=== PATIENT | female | born 1975 | race African-American/Black ===

== ENCOUNTER 2016-05-06 17:04 | Day surgery (SDC) | payer OTHER ==
[2016-04-26 11:41] VITALS: BMI 35.8
[2016-05-06 08:52] LABS: BASOPHIL 0.7 % (0-2.0); EOSINOPHIL 2.4 % (0-4.5); MCH 27.5 pg (25.7-33.7); MCHC 32.8 g/dl (32.0-36.0); MEAN CELL VOLUME 84.1 fl (80-96); MEAN PLT VOLUME 6.8 fl (7.5-11.1); PLATELET COUNT 382 K/MM3 (134-434); RDW 16.2 % (11.6-15.6); WHITE BLOOD COUNT 8.3 K/mm3 (4.0-10.0)
[2016-05-06 09:14] LABS: ALBUMIN 3.7 g/dl (3.4-5.0); ALK PHOS 80 U/L (45-117); ANION GAP 7 (8-16); BILIRUBIN,TOTAL 0.5 mg/dL (0.2-1.0); CO2 26 mmol/L (21-32); CREATININE 0.9 mg/dL (0.55-1.02); GLUCOSE,RANDOM 104 mg/dL (74-106); SGOT/AST 24 U/L (15-37); SGPT/ALT 26 U/L (12-78); TOT PROT 7.2 g/dl (6.4-8.2)
[2016-05-06 09:16] LABS: INR 0.95 (0.82-1.09); PROTHROMBIN TIME (PATIENT) 10.4 SEC (9.98-11.88)
[2016-05-06] MEDS: SODIUM CHLORIDE 1,000 ML IV SCH (14:48)
[~2016-05-06 17:04] MED LIST: DEXAMETHASONE SOD PHOSPHATE 10 MG/1 ML VIAL ONE; DOCUSATE SODIUM 100 MG CAPSULE (FP) PO PRN; HYDROmorphone *PCA* 10MG/50ML DISP.SYRIN PCA ONE; HYDROmorphone *PCA* 10MG/50ML DISP.SYRIN PCA SCH; ONDANSETRON 4 MG/2 ML VIAL IVPUSH PRN
--- NOTE | 2016-05-06 17:05 | HP ---
CHIEF COMPLAINT: S/P uterine artery ablation PCP: HISTORY OF PRESENT ILLNESS: 41 year old with history of vaginal bleeding secondary to uterine fibroids now seen status post elective uterine artery ablation. Pain is controlled on CLIENT SERVER PROGRAMMER pump Recent Travel: PAST MEDICAL HISTORY: Uterine Fibroids PAST SURGICAL HISTORY: Ankle replacement Social History: Smokinp /y Alcohol:No Drugs: NO Family History: No history of cancer Allergies No Known Allergies Allergy (Verified 05/06/16 09:50) HOME MEDICATIONS: Home Medications Medication Instructions Recorded NK [No Known Home Medication] 04/26/16 REVIEW OF SYSTEMS CONSTITUTIONAL: Absent: fever, chills, diaphoresis, generalized weakness, malaise, loss of appetite, weight change HEENT: Absent: rhinorrhea, nasal congestion, throat pain, throat swelling, difficulty swallowing, mouth swelling, ear pain, eye pain, visual changes CARDIOVASCULAR: Absent: chest pain, syncope, palpitations, irregular heart rate, lightheadedness , peripheral edema RESPIRATORY: Absent: cough, shortness of breath, dyspnea with exertion, orthopnea, wheezing, stridor, hemoptysis GASTROINTESTINAL: Absent: abdominal pain, abdominal distension, nausea, vomiting, diarrhea, constipation, melena, hematochezia GENITOURINARY: Absent: dysuria, frequency, urgency, hesitancy, hematuria, flank pain, genital pain MUSCULOSKELETAL: Absent: myalgia, arthralgia, joint swelling, back pain, neck pain SKIN: Absent: rash, itching, pallor HEMATOLOGIC/IMMUNOLOGIC: Absent: easy bleeding, easy bruising, lymphadenopathy, frequent infections ENDOCRINE: Absent: unexplained weight gain, unexplained weight loss, heat intolerance, cold intolerance NEUROLOGIC: Absent: headache, focal weakness or paresthesias, dizziness, unsteady gait, seizure, mental status changes, bladder or bowel incontinence PSYCHIATRIC: Absent: anxiety, depression, suicidal or homicidal ideation, hallucinations. PHYSICAL EXAMINATION Vital Signs - 24 hr 05/06/16 05/06/16 05/06/16 09:48 09:52 11:22 Temperature 97.9 F Pulse Rate 90 73 Pulse Rate [ Left Lower Arm] Respiratory 18 16 Rate Respiratory Rate [Left Lower Arm] Blood Pressure 159/72 156/97 Blood Pressure [Left Lower Arm ] O2 Sat by Pulse 100 100 Oximetry (%) O2 Sat by Pulse Oximetry (%) [ Left Lower Arm] 05/06/16 05/06/16 05/06/16 11:29 11:39 11:49 Temperature Pulse Rate Pulse Rate [ 78 72 75 Left Lower Arm] Respiratory Rate Respiratory 16 16 16 Rate [Left Lower Arm] Blood Pressure Blood Pressure 156/97 146/86 154/94 [Left Lower Arm ] O2 Sat by Pulse Oximetry (%) O2 Sat by Pulse 100 100 100 Oximetry (%) [ Left Lower Arm] 05/06/16 05/06/16 05/06/16 11:59 12:08 12:18 Temperature Pulse Rate Pulse Rate [ 78 78 68 Left Lower Arm] Respiratory Rate Respiratory 16 16 19 Rate [Left Lower Arm] Blood Pressure Blood Pressure 154/94 162/87 171/109 [Left Lower Arm ] O2 Sat by Pulse Oximetry (%) O2 Sat by Pulse 100 100 100 Oximetry (%) [ Left Lower Arm] 05/06/16 05/06/16 05/06/16 12:28 12:38 12:48 Temperature Pulse Rate Pulse Rate [ 68 71 78 Left Lower Arm] Respiratory Rate Respiratory 19 17 16 Rate [Left Lower Arm] Blood Pressure Blood Pressure 171/109 176/116 172/101 [Left Lower Arm ] O2 Sat by Pulse Oximetry (%) O2 Sat by Pulse 100 100 100 Oximetry (%) [ Left Lower Arm] 05/06/16 05/06/16 12:58 13:01 Temperature Pulse Rate 69 Pulse Rate [ 71 Left Lower Arm] Respiratory 15 Rate Respiratory 15 Rate [Left Lower Arm] Blood Pressure 145/92 Blood Pressure 162/96 [Left Lower Arm ] O2 Sat by Pulse 100 Oximetry (%) O2 Sat by Pulse 100 Oximetry (%) [ Left Lower Arm] GENERAL: Awake, alert, and fully oriented, in no acute distress. HEAD: Normal with no signs of trauma. EYES: Pupils equal, round and reactive to light, extraocular movements intact, sclera anicteric, conjunctiva clear. No lid lag. EARS, NOSE, THROAT: Ears normal, nares patent, oropharynx clear without exudates. Moist mucous membranes. NECK: Normal range of motion, supple without lymphadenopathy, JVD, or masses. LUNGS: Breath sounds equal, clear to auscultation bilaterally. No wheezes, and no crackles. No accessory muscle use. HEART: Regular rate and rhythm, normal S1 and S2 without murmur, rub or gallop. ABDOMEN: Soft, mild diffuse tenderness postop MUSCULOSKELETAL: Normal range of motion at all joints. No bony deformities or tenderness. No CVA tenderness. UPPER EXTREMITIES: 2+ pulses, warm, well-perfused. No cyanosis. No clubbing. No peripheral edema. LOWER EXTREMITIES: 2+ pulses, warm, well-perfused. No calf tenderness. No peripheral edema. NEUROLOGICAL: Cranial nerves II-XII intact. Normal speech. Normal gait. PSYCHIATRIC: Cooperative. Good eye contact. Appropriate mood and affect. SKIN: Warm, dry, normal turgor, no rashes or lesions noted, normal capillary refill. Laboratory Results - last 24 hr 05/06/16 05/06/16 05/06/16 08:42 08:42 08:42 WBC 8.3 RBC 4.14 Hgb 11.4 Hct 34.8 MCV 84.1 MCHC 32.8 RDW 16.2 H Plt Count 382 MPV 6.8 L Neutrophils % 68.0 Lymphocytes % 18.2 Monocytes % 10.7 H Eosinophils % 2.4 Basophils % 0.7 INR 0.95 Sodium Potassium Chloride Carbon Dioxide Anion Gap BUN Creatinine Creat Clearance w eGFR POC Glucometer Random Glucose Calcium Total Bilirubin AST ALT Alkaline Phosphatase Total Protein Albumin Urine HCG, Qual Negative 05/06/16 05/06/16 08:42 13:48 WBC RBC Hgb Hct MCV MCHC RDW Plt Count MPV Neutrophils % Lymphocytes % Monocytes % Eosinophils % Basophils % INR Sodium 139 Potassium 3.6 Chloride 106 Carbon Dioxide 26 Anion Gap 7 L BUN 9 Creatinine 0.9 Creat Clearance w eGFR > 60 POC Glucometer 174 Random Glucose 104 Calcium 9.0 Total Bilirubin 0.5 AST 24 ALT 26 Alkaline Phosphatase 80 Total Protein 7.2 Albumin 3.7 Urine HCG, Qual ASSESSMENT/PLAN: 41 year old with history of vaginal bleeding secondary to uterine fibroids now seen status post elective uterine artery ablation POD 1 - pain control with CLIENT SERVER PROGRAMMER pump - start diet - d/c rodgers in am - ambulate - d/c tomorrow if HB is stable and pain s controlled - DVT ppx with scd Visit type - Emergency Visit Emergency Visit: No - New Patient This patient is new to me today: Yes Date on this admission: 05/06/16 - Critical Care Critical Care patient: No
[2016-05-07 08:09] LABS: MCH 27.5 pg (25.7-33.7); MCHC 32.7 g/dl (32.0-36.0); MEAN CELL VOLUME 84.1 fl (80-96); MEAN PLT VOLUME 7.5 fl (7.5-11.1); PLATELET COUNT 356 K/MM3 (134-434); RDW 16.1 % (11.6-15.6); WHITE BLOOD COUNT 17.5 K/mm3 (4.0-10.0)
[2016-05-07] MEDS: oxyCODONE HCL 5 MG TABLET PO PRN ×2 (08:09→23:14)
[2016-05-07] MEDS ORDERED: ACETAMINOPHEN 325 MG TABLET (FP) PO PRN (09:58)
[2016-05-07] MEDS ORDERED: ONDANSETRON 4 MG TABLET PO PRN (13:09)
--- NOTE | 2016-05-07 13:58 | PN ---
Teaching Attending Note Name of Resident: Domingo Collins ATTENDING PHYSICIAN STATEMENT I saw and evaluated the patient. I reviewed the resident's note and discussed the case with the resident. I agree with the resident's findings and plan as documented. SUBJECTIVE:had PERDOMO this morning which she states she believes was because she was so hungry but then vomited after eating. food particles only. states she had urinary frequency since yesterday. vaginal bleeding has resolved. pt states she is no longer nauseated and that PERDOMO resolved with percocet given. pain is controlled at this time. denies CP, SOB,fever, chills, dysuria, hematuria, C/D, vaginal discharge. 1 male sexual partner. treated for STD once >10 years ago OBJECTIVE: Last Vital Signs Temp Pulse Resp BP Pulse Ox 99.0 F 84 20 154/80 99 05/07/16 10:00 05/07/16 10:00 05/07/16 10:00 05/07/16 10:00 05/07/16 09:00 General NAD CV S1 S2 RRR no murmur/rub/gallop abdomen soft NT/ND no suprapubic tenderness ASSESSMENT AND PLAN: 41yo F with PMH fibroids was admitted for observation after uterine artery embolization 1. Fibroids- s/p uterine artery embolization yesterday. pain is controlled. vaginal bleeding has stopped. d/c MANAGER FLIGHT pump 2. Leukocytosis- viral gastroenteritis vs UTI. check UA. will repeat CBC to see if leukocytosis persists or resolved. vomiting can be from viral gastroenteritis but more likely due to eating too quickly vs due to pain medication. will hold abx at this time 3. d/c home pending repeat leukocytosis and if tolerates diet.
[2016-05-07] MEDS: SODIUM CHLORIDE 1,000 ML IV SCH ×2 (15:24→20:40)
[2016-05-07 16:20] LABS: MCH 27.1 pg (25.7-33.7); MCHC 32.3 g/dl (32.0-36.0); MEAN CELL VOLUME 83.9 fl (80-96); MEAN PLT VOLUME 7.8 fl (7.5-11.1); PLATELET COUNT 338 K/MM3 (134-434); RDW 16.1 % (11.6-15.6); WHITE BLOOD COUNT 17.4 K/mm3 (4.0-10.0)
[2016-05-07 17:31] LABS: URINE APPEARANCE SLCLOUDY; URINE BILIRUBIN NEGATIVE (NEGATIVE); URINE BLOOD NEGATIVE (NEGATIVE); URINE COLOR YELLOW; URINE GLUCOSE (UA) NEGATIVE (NEGATIVE); URINE KETONE TRACE (NEGATIVE); URINE NITRITE NEGATIVE (NEGATIVE); URINE UROBILINOGEN NEGATIVE E.U./dl (0.2-1.0)
[2016-05-07 17:34] LABS: URINE LEUK ESTERASE 2+ (NEGATIVE); URINE PROTEIN 1+ (NEGATIVE)
[2016-05-07 17:47] LABS: CALCIUM OXALATE CRYSTALS FEW /hpf (NONE SEEN); URINE MUCUS RARE; URINE RBC 12 /hpf (0-3); URINE WBC 19 /hpf (3-5)
[2016-05-07] MEDS ORDERED: ACETAMINOPHEN/CAFFEINE/BUTALBITAL 1 TAB PO PRN (18:13)
--- NOTE | 2016-05-07 18:13 | PN ---
Physical Exam: SUBJECTIVE: Patient seen and examined S/p uterine artery ablation for DUB from fibroids No fever, no chills No abdominal pain No vaginal bleeding or discharge c/o of dysuria had some n/v this morning and yesterday c/o of headache OBJECTIVE: Vital Signs Period Temp Pulse Resp BP Sys/Chakraborty Pulse Ox Last 24 Hr 97.5 F-99.0 F 66-91 18-20 132-154/64-94 99-99 GENERAL: The patient is awake, alert, and fully oriented, in no acute distress. HEAD: Normal with no signs of trauma. EYES: PERRL, extraocular movements intact, sclera anicteric, conjunctiva clear. No ptosis. ENT: Ears normal, nares patent, oropharynx clear without exudates, moist mucous membranes. NECK: Trachea midline, full range of motion, supple. LUNGS: Breath sounds equal, clear to auscultation bilaterally, no wheezes, no crackles, no accessory muscle use. HEART: Regular rate and rhythm, S1, S2 without murmur, rub or gallop. ABDOMEN: Soft, nontender, nondistended, normoactive bowel sounds, no guarding, no rebound, no hepatosplenomegaly, no masses. EXTREMITIES: 2+ pulses, warm, well-perfused, no edema. NEUROLOGICAL: Normal speech, gait not observed. PSYCH: Normal mood, normal affect. SKIN: Warm, dry, normal turgor, no rashes or lesions noted Laboratory Results - last 24 hr 05/07/16 05/07/16 05/07/16 06:50 15:30 16:30 WBC 17.5 H D 17.4 H RBC 4.09 3.98 Hgb 11.3 10.8 Hct 34.4 33.4 MCV 84.1 83.9 MCHC 32.7 32.3 RDW 16.1 H 16.1 H Plt Count 356 338 MPV 7.5 D 7.8 Urine Color Yellow Urine Appearance Slcloudy Urine pH 6.0 Ur Specific [place] 1.027 Urine Protein 1+ H Urine Glucose (UA) Negative Urine Ketones Trace H Urine Blood Negative Urine Nitrite Negative Urine Bilirubin Negative Urine Urobilinogen Negative Ur Leukocyte Esterase 2+ H Active Medications Generic Name Dose Route Start Last Admin Trade Name Freq PRN Reason Stop Dose Admin Acetaminophen 650 mg 05/07/16 09:58 05/07/16 11:17 Tylenol - PO 650 mg Q4H PRN Administration FEVER OR PAIN Diphenhydramine HCl 12.5 mg 05/06/16 15:51 Benadryl Injection - IVPUSH Q4H PRN Docusate Sodium 100 mg 05/06/16 14:49 Colace - PO Q8H PRN CONSTIPATION Ceftriaxone Sodium 1 gm/ 50 mls @ 100 mls/hr 05/07/16 18:00 Dextrose IVPB DAILY ASHLEY Ondansetron HCl 4 mg 05/07/16 13:09 Zofran - PO Q6H PRN NAUSEA Oxycodone HCl 5 mg 05/06/16 14:49 05/07/16 08:09 Roxicodone - PO 5 mg Q6H PRN Administration PAIN CBC, BMP 05/07/16 15:30 05/06/16 08:42 ASSESSMENT/PLAN: 41 year old female day 1 s/p uterine artery ablation for DUB from fibroids. S/p uterine artery ablation for DUB from fibroid day 1 No abdominal pain, no vaginal bleeding normal pulse in b/l lower ext Was on JUKEBOX CHECKER pump now on oxycodone for pain control with prn benadryl, DC Was on IV fluid, now eating and regular diet, Will DC fluid UTI Leukocytosis 17.4 UA with positive leuk esterase c/o dysuria recent rodgers insertion and vaginal instrumentation Stat urine culture Stat Blood culture Ceftriaxone 1 gm IV daily Headache Tension Tylenol did not help with headache Fioricet 1 tab q4h prn DC Tylenol FEN Fluid: Restart IV fluid NS at 75ml/h Electrolytes: No abdnormalities Nutriton: regular diet DVT prophylaxis: early ambulation, scd Disposition: keep in hospital pending urine culture and blood cultures. Visit type - Emergency Visit Emergency Visit: Yes ED Registration Date: 05/06/16 Care time: The patient presented to the Emergency Department on the above date and was hospitalized for further evaluation of their emergent condition. - New Patient This patient is new to me today: Yes Date on this admission: 05/07/16 - Critical Care Critical Care patient: No - Discharge Referral Referred to [facility] Med P.C.: No
[2016-05-07] MEDS ORDERED: SODIUM CHLORIDE 1,000 ML IV SCH (19:15)
[2016-05-07] MEDS: CEFTRIAXONE 50 ML IVPB SCH (19:49)
[2016-05-08] MEDS: SODIUM CHLORIDE 1,000 ML IV SCH (06:43)
[2016-05-08 07:20] LABS: MCH 27.4 pg (25.7-33.7); MCHC 32.3 g/dl (32.0-36.0); MEAN CELL VOLUME 84.7 fl (80-96); MEAN PLT VOLUME 7.8 fl (7.5-11.1); PLATELET COUNT 303 K/MM3 (134-434); RDW 16.4 % (11.6-15.6); WHITE BLOOD COUNT 16.1 K/mm3 (4.0-10.0)
[2016-05-08] MEDS: oxyCODONE HCL 5 MG TABLET PO PRN (07:30)
--- NOTE | 2016-05-08 08:06 | PN ---
Physical Exam: SUBJECTIVE: Patient seen and examined OBJECTIVE: Vital Signs Period Temp Pulse Resp BP Sys/Chakraborty Pulse Ox Last 24 Hr 98.1 F-99.0 F 80-94 20-20 129-154/64-92 94-99 GENERAL: The patient is awake, alert, and fully oriented, in no acute distress. HEAD: Normal with no signs of trauma. EYES: PERRL, extraocular movements intact, sclera anicteric, conjunctiva clear. No ptosis. ENT: Ears normal, nares patent, oropharynx clear without exudates, moist mucous membranes. NECK: Trachea midline, full range of motion, supple. LUNGS: Breath sounds equal, clear to auscultation bilaterally, no wheezes, no crackles, no accessory muscle use. HEART: Regular rate and rhythm, S1, S2 without murmur, rub or gallop. ABDOMEN: Soft, nontender, nondistended, normoactive bowel sounds, no guarding, no rebound, no hepatosplenomegaly, no masses. EXTREMITIES: 2+ pulses, warm, well-perfused, no edema. NEUROLOGICAL: Cranial nerves II through XII grossly intact. Normal speech, gait not observed. PSYCH: Normal mood, normal affect. SKIN: Warm, dry, normal turgor, no rashes or lesions noted Laboratory Results - last 24 hr 05/07/16 05/07/16 05/07/16 06:50 15:30 16:30 WBC 17.5 H D 17.4 H RBC 4.09 3.98 Hgb 11.3 10.8 Hct 34.4 33.4 MCV 84.1 83.9 MCHC 32.7 32.3 RDW 16.1 H 16.1 H Plt Count 356 338 MPV 7.5 D 7.8 Lactic Acid Urine Color Yellow Urine Appearance Slcloudy Urine pH 6.0 Ur Specific [place] 1.027 Urine Protein 1+ H Urine Glucose (UA) Negative Urine Ketones Trace H Urine Blood Negative Urine Nitrite Negative Urine Bilirubin Negative Urine Urobilinogen Negative Ur Leukocyte Esterase 2+ H Urine RBC 12 Urine WBC 19 Ur Epithelial Cells Moderate Calcium Oxalate Crystal Few Urine Mucus Rare 05/07/16 05/07/16 05/08/16 19:15 21:30 05:50 WBC 16.1 H RBC 3.79 Hgb 10.4 L Hct 32.1 L MCV 84.7 MCHC 32.3 RDW 16.4 H Plt Count 303 MPV 7.8 Lactic Acid 3.673 H* 1.402 Urine Color Urine Appearance Urine pH Ur Specific [place] Urine Protein Urine Glucose (UA) Urine Ketones Urine Blood Urine Nitrite Urine Bilirubin Urine Urobilinogen Ur Leukocyte Esterase Urine RBC Urine WBC Ur Epithelial Cells Calcium Oxalate Crystal Urine Mucus Active Medications Generic Name Dose Route Start Last Admin Trade Name Freq PRN Reason Stop Dose Admin Acetaminophen/Butalbital/Caffeine 1 tablet 05/07/16 18:13 Fioricet - PO Q4H PRN FEVER OR PAIN Diphenhydramine HCl 12.5 mg 05/06/16 15:51 Benadryl Injection - IVPUSH Q4H PRN Docusate Sodium 100 mg 05/06/16 14:49 05/08/16 06:43 Colace - PO 100 mg Q8H PRN Administration CONSTIPATION Ceftriaxone Sodium 50 mls @ 100 mls/hr 05/07/16 18:30 05/07/16 19:49 Rocephin 1gm Ivpb (Pre-Docked) IVPB 100 mls/hr DAILY ASHLEY Administration Sodium Chloride 1,000 mls @ 100 mls/hr 05/07/16 20:44 05/08/16 06:43 Normal Saline - IV 100 mls/hr ASDIR ASHLEY Administration Ondansetron HCl 4 mg 05/07/16 13:09 Zofran - PO Q6H PRN NAUSEA Oxycodone HCl 5 mg 05/06/16 14:49 05/08/16 07:30 Roxicodone - PO 5 mg Q6H PRN Administration PAIN ASSESSMENT/PLAN:
[2016-05-08] MEDS: CEFTRIAXONE 50 ML IVPB SCH (09:00)
[2016-05-08 13:32] VITALS: PULSE 89
--- NOTE | 2016-05-08 13:46 | PN ---
Teaching Attending Note Name of Resident: Domingo Collins ATTENDING PHYSICIAN STATEMENT I saw and evaluated the patient. I reviewed the resident's note and discussed the case with the resident. I agree with the resident's findings and plan as documented. SUBJECTIVE:continues to have mild suprapubic cramping that is resolved with pain medications. had some minimal bleeding after urinating this morning when she wiped. no blood noted to be mixed with urine. Assoc with urinary frequency. denies CP, SOB,fever, chills, vaginal discharge OBJECTIVE: Last Vital Signs Temp Pulse Resp BP Pulse Ox 98.4 F 89 18 139/67 96 05/08/16 10:00 05/08/16 10:00 05/08/16 10:00 05/08/16 10:00 05/08/16 09:00 General NAD abdomen soft NT/ND no suprapubic tenderness no CVA tenderness ASSESSMENT AND PLAN: 41yo F with PMH fibroids was admitted for observation after uterine artery embolization 1. Fibroids- s/p uterine artery embolization yesterday. pain is controlled. vaginal bleeding has improved. hgb stable. will need to follow up with PROJECT ARCHIVIST 2. Acute Cystitis- started on Ceftriaxone yesterday, remains afebrile and leukocytosis trending down. UCx pending. pt requesting to go home. will d/c on keflex for 5 days. will contact pt once Cx has reported if not sensitive to abx currently on. 3. d/c home on kelfex x5 days. will monitor UCx here until resulted and inform patient if any change in abx is necessary
--- NOTE | 2016-05-08 13:48 | DS ---
Physical Exam: SUBJECTIVE: Patient seen and examined day 2 S/p uterine artery ablation for DUB from fibroids No fever, no chills suprapubic pressure and right lower quadrant pain pink urine and tinged of blood with wiping, likely from vagina mild dysuria No n/v, no constipation Last bowel movement this morning OBJECTIVE: Vital Signs Period Temp Pulse Resp BP Sys/Chakraborty Pulse Ox Last 24 Hr 98.1 F-98.8 F 80-94 18-20 129-149/64-92 94-99 PHYSICAL EXAM GENERAL: The patient is awake, alert, and fully oriented, in no acute distress. HEAD: Normal with no signs of trauma. EYES: PERRL, extraocular movements intact, sclera anicteric, conjunctiva clear. No ptosis. ENT: Ears normal, nares patent, oropharynx clear without exudates, moist mucous membranes. NECK: Trachea midline, full range of motion, supple. LUNGS: Breath sounds equal, clear to auscultation bilaterally, no wheezes, no crackles, no accessory muscle use. HEART: Regular rate and rhythm, S1, S2 without murmur, rub or gallop. ABDOMEN: Soft, right lower quadrant tenderness and suprapubic tenderness, nondistended, normoactive bowel sounds, no guarding, no rebound, no hepatosplenomegaly, no masses. EXTREMITIES: 2+ pulses, warm, well-perfused, no edema. NEUROLOGICAL: Normal speech, gait not observed. PSYCH: Normal mood, normal affect. SKIN: Warm, dry, normal turgor, no rashes or lesions noted LABS Laboratory Results - last 24 hr 05/07/16 05/07/16 05/07/16 15:30 16:30 19:15 WBC 17.4 H RBC 3.98 Hgb 10.8 Hct 33.4 MCV 83.9 MCHC 32.3 RDW 16.1 H Plt Count 338 MPV 7.8 Lactic Acid 3.673 H* Urine Color Yellow Urine Appearance Slcloudy Urine pH 6.0 Ur Specific [place] 1.027 Urine Protein 1+ H Urine Glucose (UA) Negative Urine Ketones Trace H Urine Blood Negative Urine Nitrite Negative Urine Bilirubin Negative Urine Urobilinogen Negative Ur Leukocyte Esterase 2+ H Urine RBC 12 Urine WBC 19 Ur Epithelial Cells Moderate Calcium Oxalate Crystal Few Urine Mucus Rare 05/07/16 05/08/16 21:30 05:50 WBC 16.1 H RBC 3.79 Hgb 10.4 L Hct 32.1 L MCV 84.7 MCHC 32.3 RDW 16.4 H Plt Count 303 MPV 7.8 Lactic Acid 1.402 Urine Color Urine Appearance Urine pH Ur Specific [place] Urine Protein Urine Glucose (UA) Urine Ketones Urine Blood Urine Nitrite Urine Bilirubin Urine Urobilinogen Ur Leukocyte Esterase Urine RBC Urine WBC Ur Epithelial Cells Calcium Oxalate Crystal Urine Mucus CBC, [facility] 05/08/16 05:50 05/06/16 08:42 HOSPITAL COURSE: Date of Admission:05/06/16 41 year old with history of vaginal bleeding secondary to uterine fibroids now pt is day 2 status post elective uterine artery ablation. Pain was controlled on GUT PULLER pump which was DC post op day one. Pt was switch roxicodone 5mg PRN. mild abdominal pain controlled with roxicodone. Minimal vaginal bleeding, tinged of blood with wiping, hbg stable. Normal pulse in b/l lower ext. Was on IV fluid, now eating and regular diet, no n/v. Pt is being discharge with Roxicodone 5mg PO q6h prn 4 tablets. Pt also had leukocytosis 17.4, UA with positive leuk esterase, c/o dysuria. A diagnosis of UTI was made. Stat urine culture was ordered. Pt was started on Ceftriaxone 1 gm IV daily for 2 days. Now pt is being discharge home with keflex 500mg Po BID for 5 days. Will continue to follow the urine culture. Will make antibiotic adjustment if necessary. Pt is to follow up with GLORIA Figueroa within 1 week. Date of Discharge: 05/08/16 Minutes to complete discharge: 35 Discharge Summary Reason For Visit: UTERINE FIBROID Current Active Problems UTI (urinary tract infection) (Acute) Fibroid (bleeding) (uterine) (Chronic) Status post embolization of uterine artery (Chronic) Condition: Stable - Instructions Diet, Activity, Other Instructions: Discharge Home Resume Home medications Resume home diet Follow up with OBGYN within 1 week Funmi May use tylenol 650mg PO PRN q6h for mild pain may take oxycodone 5mg q6h prn for severe pain If you start having severe uncontrolled low abdominal and pelvic pain, fever, chills, vaginal bleeding please come back to [facility] ED or contact your OBGYN Referrals: Refugio Choudhary MD [Staff Physician] - Disposition: HOME - Home Medications Comprehensive Discharge Medication List: Ambulatory Orders Acetaminophen [Tylenol .Regular Strength -] 650 mg PO Q4H PRN #0 tablet Ondansetron [Zofran -] 4 mg PO Q6H PRN #0 tablet 05/07/16 Cephalexin [Keflex] 500 mg PO Q12H #10 capsule 05/08/16 Docusate Sodium [Colace -] 100 mg PO Q8H PRN #90 05/08/16 Oxycodone HCl [Roxicodone] 5 mg PO Q6H #4 tablet MDD 4 05/08/16 This patient is new to me today: No Emergency Visit: Yes ED Registration Date: 05/06/16 Care time: The patient presented to the Emergency Department on the above date and was hospitalized for further evaluation of their emergent condition. Critical Care patient: No - Discharge Referral Referred to [facility] Med P.C.: No
[2016-05-08 13:58] VITALS: BP 133/93; TEMP 98.5
== END 2016-05-08 16:10 | disposition home or self-care (01) ==
LOC: JASUSAT 17:04 → J5S 17:04 → JASUSAT 05-07 08:04 → J5S 05-07 08:11 → UNDOADMOB 05-07 08:11
PROVIDERS: ADMIT Internal Medicine; ATTEND Internal Medicine
PROC: 04LF3ZU Occlusion of Left Uterine Artery, Percutaneous Approach (ICD-10-PCS; principal; 2016-05-06 10:00)
DX: D25.9 Leiomyoma of uterus, unspecified (principal); N39.0 Urinary tract infection, site not specified; D72.829 Elevated white blood cell count, unspecified; G44.209 Tension-type headache, unspecified, not intractable
CPT/HCPCS: 36415; 37243; 80053; 81003; 81015; 83605; 84703; 85025; 85027; 85610; 87040; 87086; 94760; C1760; C1769; C1887; G0378

== ENCOUNTER → 2016-06-19 | Emergency (ER) | payer OTHER ==
[~2016-06-19] MED LIST changes: -DEXAMETHASONE SOD PHOSPHATE 10 MG/1 ML VIAL ONE; -DOCUSATE SODIUM 100 MG CAPSULE (FP) PO PRN; -HYDROmorphone *PCA* 10MG/50ML DISP.SYRIN PCA ONE; -HYDROmorphone *PCA* 10MG/50ML DISP.SYRIN PCA SCH; +ONDANSETRON *ODT* 4 MG TABLET ONE; +ONDANSETRON *ODT* 4 MG TABLET SL ONE; +ONDANSETRON 4 MG/2 ML VIAL IVPUSH ONE; -ONDANSETRON 4 MG/2 ML VIAL IVPUSH PRN; +SODIUM CHLORIDE 1,000 ML IV STA; +morphine CARPU-JECT 4 MG/1 ML DISP.SYRIN IVPUSH ONE; +morphine CARPU-JECT 4 MG/1 ML DISP.SYRIN ONE
--- NOTE | 2016-06-19 15:10 | PDOC ---
History of Present Illness - General Chief Complaint: Pain, Acute Stated Complaint: ABD PAIN Time Seen by Provider: 06/19/16 14:49 History Source: Patient Exam Limitations: No Limitations - History of Present Illness Initial Comments: 41 yo AA F h/o leiomyoma s/p uterine artery ablation on 05/05 presented to the ED with severe lower abd pain since this morning. She stated that she felt a couple of sharp pain when she's making the bed in the morning. She then sit down and thought it'd go away but did not. The pain has since becoming worse and located diffusely in her lower abd, back, anus, vagina and upper thighs. It' s 10/10, constant, stabbing like, no aggravating or alleviating factors, associated with feeling hot and cold, vaginal spotting and n/v. Her LMP is . Denies chest pain, sob, urinary or bowel symptoms. Past History - Past Medical History Allergies/Adverse Reactions: Allergies Allergy/AdvReac Type Severity Reaction Status Date / Time No Known Allergies Allergy Verified 06/19/16 14:37 Home Medications: Ambulatory Orders Acetaminophen [Tylenol .Regular Strength -] 650 mg PO Q4H PRN #0 tablet Ondansetron [Zofran -] 4 mg PO Q6H PRN #0 tablet 05/07/16 Cephalexin [Keflex] 500 mg PO Q12H #10 capsule 05/08/16 Docusate Sodium [Colace -] 100 mg PO BID #60 capsule 05/08/16 Oxycodone HCl [Roxicodone] 5 mg PO Q6H #4 tablet MDD 4 05/08/16 Oxycodone HCl/Acetaminophen [Percocet 5-325 mg Tablet] 1 tab PO Q6H PRN #20 tablet MDD 4 tablets 06/19/16 Anemia: No Asthma: No Cancer: No Cardiac Disorders: No CVA: No COPD: No CHF: No Dementia: No Diabetes: No GI Disorders: No Disorders: No HTN: No Hypercholesterolemia: No Liver Disease: No Seizures: No Thyroid Disease: No - Surgical History Orthopedic Surgery: Yes (LEFT ANKLE SURGERY) - Psycho/Social/Smoking Cessation Hx Suicidal Ideation: No Smoking History: Current every day smoker Have you smoked in the past 12 months: Yes Number of Cigarettes Smoked Daily: 4 Information on smoking cessation initiated: No 'Breaking Loose' booklet given: 04/26/16 Hx Alcohol Use: No Drug/Substance Use Hx: No Substance Use Type: None Review of Systems - Review of Systems Able to Perform ROS?: Yes Is the patient limited Yi proficient: No Constitutional: Yes: Chills Respiratory: No: Cough, Shortness of Breath Cardiac (ROS): No: Chest Pain, Edema ABD/GI: Yes: Nausea, Vomiting : Yes: Other (spotting) *Physical Exam - Vital Signs Last Vital Signs Temp Pulse Resp BP Pulse Ox 97.4 F L 82 17 141/90 100 06/19/16 14:37 06/19/16 14:37 06/19/16 14:37 06/19/16 14:37 06/19/16 14:37 - Physical Exam General Appearance: Yes: Other (in severe pain) Respiratory/Chest: positive: Lungs Clear, Normal Breath Sounds Cardiovascular: positive: Regular Rhythm, Regular Rate, S1, S2. negative: Murmur Gastrointestinal/Abdominal: positive: Distended, Guarding, Tenderness Musculoskeletal: negative: CVA Tenderness Extremity: negative: Swelling, Calf Tenderness ED Treatment Course - LABORATORY CBC & Chemistry Diagram: 06/19/16 14:57 06/19/16 14:57 Medical Decision Making - Medical Decision Making 06/19/16 19:49 CBC shows persistently elevated WBC but patient is afrebile. Her abd pain has subsided dramatically. CT abd shows no acute pathology. Patient signed out AMA and wanted pain medication for her abd pain. Will send percocets. *DC/Admit/Observation/Transfer Diagnosis at time of Disposition: Fibroid (bleeding) (uterine) Qualifiers: Uterine leiomyoma location: unspecified location Qualified Code(s): D25.9 - Leiomyoma of uterus, unspecified - Discharge Dispostion Disposition: AGAINST MEDICAL ADVICE Admit: No - Prescriptions Prescriptions: Oxycodone HCl/Acetaminophen [Percocet 5-325 mg Tablet] 1 tab PO Q6H PRN #20 tablet MDD 4 tablets PRN Reason: Pain - Referrals Referrals: Vivian Jennings MD [Primary Care Provider] - - Patient Instructions Printed Discharge Instructions: DI for Uterine Fibroids Additional Instructions: 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
[2016-06-19 15:32] VITALS: BP 141/90; PULSE 82; TEMP 97.4; BMI 34.0
--- NOTE | 2016-06-19 15:49 | PDOC ---
Attending Attestation - Resident Resident Name: Barrera Saavedra - ED Attending Attestation I have performed the following: I have examined & evaluated the patient, The case was reviewed & discussed with the resident, I agree w/resident's findings & plan, Exceptions are as noted - HPI HPI: 41 yo F history uterine artery embolization due to fibroids presents with diffuse abd pain for 1 day. She states the pain is diffuse to her abdomen as well as vagina and rectum. Denies dysuria, f/c, cp, SOB. No recent N/V/D. No prior similar symptoms. She is currently having her menses. - Physicial Exam PE: GENERAL: Awake, alert, and fully oriented, in no acute distress HEAD: No signs of trauma EYES: PERRLA, EOMI, sclera anicteric, conjunctiva clear ENT: Auricles normal inspection, hearing grossly normal, nares patent, oropharynx clear without exudates. Moist mucosa NECK: Normal ROM, supple, no lymphadenopathy, JVD, or masses LUNGS: Breath sounds equal, clear to auscultation bilaterally. No wheezes, and no crackles HEART: Regular rate and rhythm, normal S1 and S2, no murmurs, rubs or gallops ABDOMEN: Soft, diffusely tender with guarding, normoactive bowel sounds. No rebound. No masses EXTREMITIES: Normal range of motion, no edema. No clubbing or cyanosis. No cords, erythema, or tenderness NEUROLOGICAL: Cranial nerves II through XII grossly intact. Normal speech, normal gait SKIN: Warm, Dry, normal turgor, no rashes or lesions noted. - Medical Decision Making Patient with diffuse abdominal tenderness, had endovascular procedure in April to treat fibroids. Will obtain UA, blood, and CT to further evaluate.
[2016-06-19 16:07] LABS: BASOPHIL 0.7 % (0-2.0); EOSINOPHIL 0.2 % (0-4.5); MCH 26.5 pg (25.7-33.7); MCHC 32.1 g/dl (32.0-36.0); MEAN CELL VOLUME 82.6 fl (80-96); PLATELET COUNT 417 K/MM3 (134-434); RDW 16.5 % (11.6-15.6); WHITE BLOOD COUNT 18.5 K/mm3 (4.0-10.0)
[2016-06-19 16:30] LABS: ALBUMIN 3.9 g/dl (3.4-5.0); ALK PHOS 81 U/L (45-117); ANION GAP 8 (8-16); BILIRUBIN,TOTAL 0.2 mg/dL (0.2-1.0); CO2 29 mmol/L (21-32); CREATININE 0.8 mg/dL (0.55-1.02); GLUCOSE,RANDOM 180 mg/dL (74-106); SGOT/AST 19 U/L (15-37); SGPT/ALT 22 U/L (12-78); TOT PROT 7.8 g/dl (6.4-8.2)
[2016-06-19 17:04] LABS: URINE APPEARANCE CLEAR; URINE BILIRUBIN NEGATIVE (NEGATIVE); URINE COLOR YELLOW; URINE GLUCOSE (UA) 2+ (NEGATIVE); URINE KETONE TRACE (NEGATIVE); URINE NITRITE NEGATIVE (NEGATIVE); URINE UROBILINOGEN NEGATIVE E.U./dl (0.2-1.0)
[2016-06-19 17:07] LABS: URINE BLOOD 3+ (NEGATIVE); URINE LEUK ESTERASE 1+ (NEGATIVE); URINE PROTEIN 1+ (NEGATIVE)
[2016-06-19 17:12] LABS: URINE MUCUS RARE; URINE RBC 3 /hpf (0-3); URINE WBC 9 /hpf (3-5)
--- NOTE | 2016-06-19 19:53 | PDOC ---
*Physical Exam - Vital Signs Last Vital Signs Temp Pulse Resp BP Pulse Ox 97.4 F L 82 17 141/90 100 06/19/16 14:37 06/19/16 14:37 06/19/16 14:37 06/19/16 14:37 06/19/16 14:37 ED Treatment Course - LABORATORY CBC & Chemistry Diagram: 06/19/16 14:57 06/19/16 14:57 - ADDITIONAL ORDERS Additional order review: Laboratory Results 06/19/16 06/19/16 06/19/16 16:50 16:50 14:57 Sodium 138 Potassium 3.9 Chloride 101 Carbon Dioxide 29 Anion Gap 8 BUN 16 D Creatinine 0.8 Creat Clearance w eGFR > 60 Random Glucose 180 H D Calcium 9.0 Total Bilirubin 0.2 D AST 19 D ALT 22 Alkaline Phosphatase 81 Total Protein 7.8 Albumin 3.9 Lipase 114 Serum , Qual Urine Color Yellow Urine Appearance Clear Urine pH 6.0 Ur Specific [place] Urine Protein 1+ H Urine Glucose (UA) 2+ H Urine Ketones Trace H Urine Blood 3+ H Urine Nitrite Negative Urine Bilirubin Negative Urine Urobilinogen Negative Ur Leukocyte Esterase 1+ H Urine RBC 3 Urine WBC 9 Ur Epithelial Cells Rare Urine Mucus Rare Urine HCG, Qual Negative 06/19/16 14:57 Sodium Potassium Chloride Carbon Dioxide Anion Gap BUN Creatinine Creat Clearance w eGFR Random Glucose Calcium Total Bilirubin AST ALT Alkaline Phosphatase Total Protein Albumin Lipase Serum , Qual Negative Urine Color Urine Appearance Urine pH Ur Specific [place] Urine Protein Urine Glucose (UA) Urine Ketones Urine Blood Urine Nitrite Urine Bilirubin Urine Urobilinogen Ur Leukocyte Esterase Urine RBC Urine WBC Ur Epithelial Cells Urine Mucus Urine HCG, Qual 06/19/16 14:57 RBC 4.26 MCV 82.6 MCHC 32.1 RDW 16.5 H MPV 8.0 Neutrophils % 91.0 H D Lymphocytes % 3.7 L D Monocytes % 4.4 Eosinophils % 0.2 D Basophils % 0.7 - Medications Given in the ED: ED Medications Discontinued Medications Generic Name Dose Route Start Last Admin Trade Name Freq PRN Reason Stop Dose Admin Sodium Chloride 1,000 mls @ 1,000 mls/hr 06/19/16 15:47 06/19/16 15:56 Normal Saline - IV 06/19/16 16:46 1,000 mls/hr ASDIR STA Administration Morphine Sulfate 4 mg 06/19/16 15:11 06/19/16 15:41 Morphine Injection - IVPUSH 06/19/16 15:12 4 mg ONCE ONE Administration Ondansetron HCl 8 mg 06/19/16 15:10 06/19/16 15:41 Zofran Odt - SL 06/19/16 15:11 8 mg ONCE ONE Administration Ondansetron HCl 4 mg 06/19/16 15:47 06/19/16 16:56 Zofran Injection IVPUSH 06/19/16 15:48 Not Given ONCE ONE Medical Decision Making - Medical Decision Making 06/19/16 19:51 Dr. Saavedra informed me that pt doesn't want to stay. Advised him to have pt signed AMA. Pt signed and is willing to take risk. 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 - Post Discharge Activity
== END | disposition left against medical advice (07) ==
LOC: JER 14:29
PROC: 3E033NZ Introduction of Analgesics, Hypnotics, Sedatives into Peripheral Vein, Percutaneous Approach (ICD-10-PCS; principal; 2016-06-19)
PROC: 3E0337Z Introduction of Electrolytic and Water Balance Substance into Peripheral Vein, Percutaneous Approach (ICD-10-PCS; 2016-06-19)
DX: D25.9 Leiomyoma of uterus, unspecified (principal); F17.210 Nicotine dependence, cigarettes, uncomplicated
CPT/HCPCS: 36415; 74177-TC; 80053; 81003; 81015; 83690; 84703; 85025; 96361; 96374; 99282-25

== ENCOUNTER 2023-08-23 13:43 | Observation (INO) | payer OTHER ==
[2023-08-23] MEDS: SODIUM CHLORIDE 0.9% 500 ML INFUS.BAG IV ONE (15:10)
[2023-08-23] MEDS ORDERED: ACETAMINOPHEN INJECTION 100 ML IVPB ONE (15:14)
[2023-08-23 15:15] LABS: BASO % 0.4 % (0-2.0); EOS % 1.4 % (0-4.5); HEMATOCRIT 33.9 % (32.4-45.2); HEMOGLOBIN 10.6 GM/dL (10.7-15.3); LYMPH % 16.2 % (8-40); MCH 23.7 pg (25.7-33.7); MCHC 31.3 g/dl (32.0-36.0); MEAN CELL VOLUME 75.7 fl (80-96); MEAN PLT VOLUME 7.7 fl (7.5-11.1); MONO % 7.8 % (3.8-10.2); NEUT % 74.2 % (42.8-82.8); PLATELET COUNT 462 10^3/uL (134-434); RBC 4.48 M/mm3 (3.60-5.2); RDW 20.7 % (11.6-15.6)
[2023-08-23] MEDS: ACETAMINOPHEN 1000 MG/100 ML BAG IVPB ONE (15:16)
[2023-08-23 15:20] LABS: EPI CELLS >36 /uL (0-25.1); HYALINE CASTS 7 /uL (0-3.1); PH,URINE 6.5 (5.0-8.0); URINE APPEARANCE CLOUDY; URINE BACTERIA 1079 /uL (0-1359); URINE BILIRUBIN 1+ (NEGATIVE); URINE COLOR DK YELLOW; URINE GLUCOSE (UA) NEGATIVE (NEGATIVE); URINE KETONE 1+ (NEGATIVE); URINE LEUK ESTERASE TRACE (NEGATIVE); URINE NITRITE NEGATIVE (NEGATIVE); URINE PROTEIN 1+ (NEGATIVE); URINE WBC 29 /uL (0-25.8)
[2023-08-23 15:38] LABS: URINE RBC 56 /uL (0-23.9)
[2023-08-23 15:41] LABS: ANISOCYTOSIS 1+; CALCIUM 9.4 mg/dL (8.5-10.1); MACROCYTOSIS 0; OVALOCYTE 1+; POTASSIUM 3.5 mmol/L (3.5-5.1)
[2023-08-23 15:43] LABS: BLOOD UREA NITROGEN 17.6 mg/dL (7-18)
[2023-08-23 15:56] LABS: CREATININE 0.6 mg/dL (0.55-1.3)
[2023-08-23] MEDS ORDERED: CEFTRIAXONE 1 GM/50 ML BAG ONE (16:11)
[2023-08-23] MEDS ORDERED: morphine SULFATE 4 MG/ML VIAL ONE (16:11)
[2023-08-23] MEDS: morphine SULFATE 4 MG/ML VIAL IVPUSH ONE (16:21)
[2023-08-23] MEDS: CEFTRIAXONE 1 GM in DEXTROSE 5%-WATER - 100 ML IVPB ONE (16:22)
[2023-08-23] MEDS ORDERED: MORPHINE SULFATE 2 MG/ML SYRINGE ONE (21:59)
[2023-08-23] MEDS ORDERED: DOCUSATE SODIUM 100 MG CAPSULE (FP) PO ONE (22:00)
[2023-08-23] MEDS: DOCUSATE SODIUM 100 MG CAPSULE (FP) PO SCH (22:11)
[2023-08-23] MEDS: MORPHINE SULFATE 2 MG/ML SYRINGE IVPUSH PRN (22:11)
[2023-08-23] MEDS: D5-1/2NS+20 MEQ KCL - 20 MEQ/1,000 ML INFUS.BAG IV SCH (22:11)
[2023-08-23 23:44] VITALS: BMI 30.2
[2023-08-24] MEDS: KETOROLAC TROMETHAMINE 30 MG/1 ML VIAL IVPUSH ONE (01:50)
[2023-08-24 08:19] LABS: BASO % 1.1 % (0-2.0); EOS % 2.9 % (0-4.5); HEMATOCRIT 33.1 % (32.4-45.2); HEMOGLOBIN 10.6 GM/dL (10.7-15.3); LYMPH % 27.3 % (8-40); MCH 24.5 pg (25.7-33.7); MEAN CELL VOLUME 76.4 fl (80-96); MEAN PLT VOLUME 8.1 fl (7.5-11.1); MONO % 7.5 % (3.8-10.2); NEUT % 61.2 % (42.8-82.8); PLATELET COUNT 445 10^3/uL (134-434); RBC 4.34 M/mm3 (3.60-5.2); RDW 21.5 % (11.6-15.6)
[2023-08-24 08:33] LABS: POTASSIUM 3.7 mmol/L (3.5-5.1)
[2023-08-24 08:36] LABS: BLOOD UREA NITROGEN 12.7 mg/dL (7-18); CALCIUM 9.1 mg/dL (8.5-10.1)
[2023-08-24 08:40] LABS: CREATININE 0.5 mg/dL (0.55-1.3)
[2023-08-24] MEDS: CEFTRIAXONE 1 GM in DEXTROSE 5%-WATER - 50 ML IVPB SCH (10:01)
[2023-08-24] MEDS ORDERED: ONDANSETRON 4 MG/2 ML VIAL IVPUSH PRN (11:04)
[2023-08-24 11:15] LABS: URINE APPEARANCE CLEAR; URINE BILIRUBIN NEGATIVE (NEGATIVE); URINE COLOR YELLOW; URINE GLUCOSE (UA) NEGATIVE (NEGATIVE); URINE KETONE NEGATIVE (NEGATIVE); URINE LEUK ESTERASE NEGATIVE (NEGATIVE); URINE NITRITE NEGATIVE (NEGATIVE); URINE PROTEIN NEGATIVE (NEGATIVE)
[2023-08-24] MEDS: PANTOPRAZOLE 40 MG TABLET PO SCH (11:30)
[2023-08-24] MEDS: ACETAMINOPHEN 1000 MG/100 ML BAG IVPB PRN ×2 (11:30→18:27)
[2023-08-24] MEDS: ASPIRIN 81 MG CHEWABLE TABLETS PO SCH (16:41)
[2023-08-24] MEDS ORDERED: ACETAMINOPHEN 325 MG TABLET (FP) PO PRN (21:19)
[2023-08-24] MEDS: morphine SULFATE 4 MG/ML VIAL IVPUSH ONE (22:35)
[2023-08-25 08:14] LABS: BASO % 0.5 % (0-2.0); HEMATOCRIT 33.6 % (32.4-45.2); HEMOGLOBIN 10.6 GM/dL (10.7-15.3); LYMPH % 21.1 % (8-40); MCHC 31.5 g/dl (32.0-36.0); MEAN CELL VOLUME 76.3 fl (80-96); MONO % 7.9 % (3.8-10.2); NEUT % 67.5 % (42.8-82.8); PLATELET COUNT 453 10^3/uL (134-434); RDW 20.8 % (11.6-15.6); WHITE BLOOD COUNT 7.9 K/mm3 (4.0-10.0)
[2023-08-25 08:32] LABS: POTASSIUM 3.7 mmol/L (3.5-5.1)
[2023-08-25 08:37] LABS: ALBUMIN 3.3 g/dl (3.4-5.0); BLOOD UREA NITROGEN 9.3 mg/dL (7-18)
[2023-08-25 08:40] LABS: BILIRUBIN,TOTAL 0.4 mg/dL (0.2-1); CREATININE 0.7 mg/dL (0.55-1.3); TOT PROT 6.7 g/dl (6.4-8.2)
[2023-08-25 08:44] LABS: N-TERMINAL BNP 187.9 pg/ml (5-125)
[2023-08-25] MEDS: D5-1/2NS+20 MEQ KCL - 20 MEQ/1,000 ML INFUS.BAG IV SCH (10:12)
[2023-08-25] MEDS: CEFTRIAXONE 1 GM in DEXTROSE 5%-WATER - 50 ML IVPB SCH (10:13)
[2023-08-25] MEDS: ACETAMINOPHEN 1000 MG/100 ML BAG IVPB PRN (16:52)
[2023-08-25] MEDS: POLYETHYLENE GLYCOL (HEALTHYLAX) 3350 17 GM PACKET PO SCH (16:53)
[2023-08-25] MEDS ORDERED: SENNOSIDES 8.6MG TABLET (FP) PO PRN (18:17)
[2023-08-25] MEDS: LIDOCAINE 5% TOPICAL PATCH TP SCH (18:58)
[2023-08-25] MEDS: KETOROLAC TROMETHAMINE 30 MG/1 ML VIAL IM PRN (21:04)
[2023-08-25] MEDS: DOCUSATE SODIUM 100 MG CAPSULE (FP) PO SCH (21:08)
[2023-08-25] MEDS: MELATONIN 5 MG TABLETS PO PRN (21:08)
[2023-08-26 08:21] LABS: BASO % 0.7 % (0-2.0); EOS % 3.4 % (0-4.5); HEMATOCRIT 35.4 % (32.4-45.2); HEMOGLOBIN 11.3 GM/dL (10.7-15.3); LYMPH % 22.1 % (8-40); MCH 24.2 pg (25.7-33.7); MCHC 32.1 g/dl (32.0-36.0); MEAN CELL VOLUME 75.4 fl (80-96); MONO % 8.7 % (3.8-10.2); NEUT % 65.1 % (42.8-82.8); PLATELET COUNT 442 10^3/uL (134-434); RBC 4.69 M/mm3 (3.60-5.2); RDW 20.9 % (11.6-15.6); WHITE BLOOD COUNT 6.8 K/mm3 (4.0-10.0)
[2023-08-26 08:37] LABS: POTASSIUM 4.1 mmol/L (3.5-5.1)
[2023-08-26 08:47] LABS: ALBUMIN 3.3 g/dl (3.4-5.0); CALCIUM 9.2 mg/dL (8.5-10.1)
[2023-08-26 08:48] LABS: BLOOD UREA NITROGEN 10.6 mg/dL (7-18)
[2023-08-26 08:50] LABS: CREATININE 0.6 mg/dL (0.55-1.3); TOT PROT 7.2 g/dl (6.4-8.2)
[2023-08-26 08:52] LABS: BILIRUBIN,TOTAL 0.2 mg/dL (0.2-1)
[2023-08-26] MEDS: LIDOCAINE PATCH REMOVAL MC SCH (22:00)
[2023-08-28 01:30] VITALS: TEMP 98.4
[2023-08-28 06:38] VITALS: BP 120/53; PULSE 58
[2023-08-28 08:51] VITALS: RESP 16
== END 2023-08-28 12:42 | disposition home or self-care (01) ==
LOC: JER 13:43 → JERBED 19:41 → INTOOBSV 19:41 → J7W 23:14 → J4W 08-24 02:58
PROVIDERS: ADMIT Internal Medicine; ATTEND Internal Medicine
PROC: 3E03329 Introduction of Other Anti-infective into Peripheral Vein, Percutaneous Approach (ICD-10-PCS; principal; 2023-08-23)
PROC: 3E033NZ Introduction of Analgesics, Hypnotics, Sedatives into Peripheral Vein, Percutaneous Approach (ICD-10-PCS; 2023-08-23)
PROC: 3E0333Z Introduction of Anti-inflammatory into Peripheral Vein, Percutaneous Approach (ICD-10-PCS; 2023-08-23)
PROC: 3E0233Z Introduction of Anti-inflammatory into Muscle, Percutaneous Approach (ICD-10-PCS; 2023-08-23)
PROC: 3E033NZ Introduction of Analgesics, Hypnotics, Sedatives into Peripheral Vein, Percutaneous Approach (ICD-10-PCS; 2023-08-23)
PROC: 3E0337Z Introduction of Electrolytic and Water Balance Substance into Peripheral Vein, Percutaneous Approach (ICD-10-PCS; 2023-08-23)
DX: N39.0 Urinary tract infection, site not specified (principal); R10.12 Left upper quadrant pain; R55 Syncope and collapse; K59.00 Constipation, unspecified; R07.89 Other chest pain; R00.2 Palpitations; I10 Essential (primary) hypertension; F41.9 Anxiety disorder, unspecified; M54.50 Low back pain, unspecified; D25.9 Leiomyoma of uterus, unspecified; Z87.738 Personal history of other specified (corrected) congenital malformations of digestive system
CPT/HCPCS: 36415; 70450-TC; 71045-TC-FY; 72148-TC; 74177-TC; 76775-TC; 80048; 80053; 80061; 81003; 82962; 83036; 83735; 83880; 84439; 84443; 84484; 84702; 85025; 87086; 87186; 93005; 93010; 93306-TC; 93351; 96365; 96366; 96367; 96368; 96372; 96375; 96376; 99285-25; G0378; J0131; Q9967